=== PATIENT | male | born 1970 | race Two or more races ===

== ENCOUNTER 2020-02-28 13:32 | Emergency (ER) | payer MEDICAID ==
[~2020-02-28] VITALS: Ht 180.3 cm; Wt 86.2 kg
--- NOTE | 2020-02-28 13:48 | NUR ---
came in for RFA multiple lacerations. from bite of a dog. "trying to break two fighting dogs". to ER bed 9, hooked to monitor, change dto hosp gown, warm blanket provided. patient aao X 4. breathing even and unlabored. awaiting md bhakta
--- NOTE | 2020-02-28 13:49 | NUR ---
EXTRA HAND AT BEDSIDE FOR CLEANSING WOUND.
--- NOTE | 2020-02-28 14:29 | NUR ---
ALIVIA DE JESUS: [phone] -
--- NOTE | 2020-02-28 15:15 | NUR ---
Dr Akers at bedside
[2020-02-28] MEDS ORDERED: TDAP [DIPH/PERTUSSIS/TET] 0.5 ML VIAL IM ONE ×2 (15:30→15:51)
[2020-02-28] MEDS ORDERED: ONDANSETRON 4 MG TAB.RAPDIS SL ONE (15:30)
[2020-02-28] MEDS ORDERED: HYDROCODONE/APAP 10/325MG TABLET PO ONE (15:30)
[2020-02-28] MEDS ORDERED: LIDOCAINE 1%-EPI 1:100,000 20 ML VIAL TP ONE (15:30)
[2020-02-28] MEDS ORDERED: AMOX/CLAVULANATE 875 MG TABLET PO ONE (15:30)
[2020-02-28] MEDS ORDERED: HYDROCODONE/APAP 10/325MG TABLET ONE (15:50)
[2020-02-28] MEDS ORDERED: LIDOCAINE 1%-EPI 1:100,000 20 ML VIAL ONE (15:50)
[2020-02-28] MEDS ORDERED: AMOX/CLAVULANATE 875 MG TABLET ONE (15:51)
[2020-02-28] MEDS ORDERED: ONDANSETRON 4 MG TAB.RAPDIS ONE (15:51)
--- NOTE | 2020-02-28 17:01 | NUR ---
EDSON CAMPOS AT BEDSIDE FOR SUTURING
--- NOTE | 2020-02-28 17:26 | NUR ---
Patient discharged to home in stable condition. Written and verbal after care instructions given. Patient verbalizes understanding of instruction. Instructed not to drive. Will be picked up by from waiting room.
[2020-02-28 17:37] VITALS: BP 124/70
== END 2020-02-28 17:38 | disposition home or self-care (01) ==
LOC: ER 13:36
DX: S51.811A Laceration without foreign body of right forearm, initial encounter (principal); S61.511A Laceration without foreign body of right wrist, initial encounter; W54.0XXA Bitten by dog, initial encounter; Y93.89 Activity, other specified; Y92.89 Other specified places as the place of occurrence of the external cause; Y99.8 Other external cause status
CPT/HCPCS: 12004; 73090; 90471; 90715; 99284; A6403; J3490; L3763; Q0162

== ENCOUNTER 2020-03-01 08:03 | Emergency (ER) | payer MEDICAID ==
[~2020-03-01] VITALS: Ht 180.3 cm; Wt 83.9 kg
--- NOTE | 2020-03-01 08:12 | NUR ---
PT came to ER for follow up wound check with multiple laceration on right forearm due to dog bite 2 days ago. noted with swelling on RFA. redness on surrounding area, no purulent discharge. no foul-smelling odor. no c/o pain at this time. awaiting for MD bhakta
[2020-03-01] MEDS ORDERED: LIDOCAINE /MPF 1% VIAL 5 ML VIAL ONE (08:23)
[2020-03-01] MEDS ORDERED: CEFTRIAXONE 1 G VIAL ONE (08:23)
[2020-03-01] MEDS: CEFTRIAXONE 1 G VIAL IM ONE (08:35)
[2020-03-01 08:48] VITALS: BP 123/76
== END 2020-03-01 08:48 | disposition home or self-care (01) ==
LOC: ER 08:06
DX: S51.811D Laceration without foreign body of right forearm, subsequent encounter (principal); L03.113 Cellulitis of right upper limb; W54.0XXD Bitten by dog, subsequent encounter
CPT/HCPCS: 96372; 99283; J0696; J3490

== ENCOUNTER 2020-03-03 07:58 | Emergency (ER) | payer MEDICAID ==
[~2020-03-03] VITALS: Ht 180.3 cm; Wt 85.3 kg
[2020-03-03 08:03] VITALS: BP 123/75
--- NOTE | 2020-03-03 08:10 | NUR ---
SEEN AND EXAMINED BY .
--- NOTE | 2020-03-03 08:17 | NUR ---
WOUND DRESSING AND CLEANING DONE BY MANUAL QA TESTER.
--- NOTE | 2020-03-03 08:21 | NUR ---
Patient discharged to home in stable condition. Written and verbal after care instructions given. Patient verbalizes understanding of instruction.
== END 2020-03-03 08:23 | disposition home or self-care (01) ==
LOC: ER 08:01
DX: S51.811D Laceration without foreign body of right forearm, subsequent encounter (principal); W54.0XXD Bitten by dog, subsequent encounter

== ENCOUNTER 2020-03-09 07:37 | Emergency (ER) | payer MEDICAID ==
[~2020-03-09] VITALS: Ht 180.3 cm; Wt 83.9 kg
[2020-03-09 07:42] VITALS: BP 118/74
--- NOTE | 2020-03-09 08:10 | NUR ---
SUTURE REMOVED BY .
--- NOTE | 2020-03-09 08:22 | NUR ---
Patient discharged to home in stable condition. Written and verbal after care instructions given. Patient verbalizes understanding of instruction.
== END 2020-03-09 08:22 | disposition home or self-care (01) ==
LOC: ER 07:51
DX: S51.811D Laceration without foreign body of right forearm, subsequent encounter (principal); W54.0XXD Bitten by dog, subsequent encounter

== ENCOUNTER 2021-06-23 14:57 | Emergency (ER) | payer BC, MEDICAID ==
[~2021-06-23] VITALS: Ht 180.3 cm; Wt 83.9 kg
--- NOTE | 2021-06-23 15:22 | NUR ---
BIB FAMILY, BLEEDING HEMORRHOIDS/PAIN SINCE 4AM.
--- NOTE | 2021-06-23 15:41 | NUR ---
EDSON CAMPOS AT BEDSIDE FOR EVAL
[2021-06-23] MEDS ORDERED: ONDANSETRON HCL/PF - ER 4 MG/2 ML VIAL IV ONE (16:00)
[2021-06-23] MEDS ORDERED: LIDOCAINE VISCOUS 2% UD 15 ML UDC MM ONE ×2 (16:00→17:00)
[2021-06-23] MEDS ORDERED: MORPHINE SULFATE INJ 10 MG/ML DISP.SYRIN IV ONE (16:00)
[2021-06-23] MEDS ORDERED: MORPHINE SULFATE INJ 4 MG/ML DISP.SYRIN ONE (16:00)
[2021-06-23] MEDS ORDERED: ONDANSETRON HCL/PF 4 MG/2 ML VIAL ONE (16:00)
[2021-06-23] MEDS ORDERED: LIDOCAINE VISCOUS 2% UD 15 ML UDC ONE ×2 (16:00→16:38)
[2021-06-23] MEDS ORDERED: HYDR30CR79 TP (17:13)
[2021-06-23] MEDS ORDERED: LIDO30CR TP (17:13)
[2021-06-23] MEDS ORDERED: DOCU-141 PO (17:13)
[2021-06-23 17:37] VITALS: BP 134/80
--- NOTE | 2021-06-23 17:37 | NUR ---
IV removed. Catheter intact and site benign. Pressure and 4x4 applied to site. No bleeding noted.Patient discharged to home in stable condition. Written and verbal after care instructions given. Patient verbalizes understanding of instruction.
== END 2021-06-23 17:38 | disposition home or self-care (01) ==
LOC: ER 15:00
DX: K64.8 Other hemorrhoids (principal); K62.5 Hemorrhage of anus and rectum; K59.00 Constipation, unspecified; Z79.52 Long term (current) use of systemic steroids; Z79.899 Other long term (current) drug therapy
CPT/HCPCS: 46945; 96374; 96375; 99284; J2270; J2405 ×2

== ENCOUNTER 2023-08-08 15:33 | Emergency (ER) | payer BC ==
[~2023-08-08] VITALS: Ht 180.3 cm; Wt 95.3 kg
[~2023-08-08 15:33] MED LIST: HYDR30CR79 TP; LIDO30CR TP
[2023-08-08] MEDS ORDERED: MORPHINE SULFATE INJ 4 MG/ML DISP.SYRIN ONE (16:33)
[2023-08-08] MEDS: MORPHINE SULFATE INJ 2 MG/ML DISP.SYRIN IV ONE (16:47)
[2023-08-08] MEDS: PROPOFOL 200 MG/20 ML VIAL IV ONE (17:55)
[2023-08-08] MEDS ORDERED: IBUP-1957 PO (19:01)
[2023-08-08 19:23] VITALS: BP 145/99; TEMP 98.2; O2SAT 99
== END 2023-08-08 19:23 | disposition home or self-care (01) ==
LOC: ER 16:11
DX: S43.004A Unspecified dislocation of right shoulder joint, initial encounter (principal); X58.XXXA Exposure to other specified factors, initial encounter; Y93.89 Activity, other specified; Y92.89 Other specified places as the place of occurrence of the external cause; Y99.8 Other external cause status
CPT/HCPCS: 99285; 23650; 96374; 99152; 73030 ×2; J2704; J2270; G0500

== ENCOUNTER 2024-06-18 09:14 | Emergency (ER) | payer BC ==
[~2024-06-18] VITALS: Ht 180.3 cm; Wt 86.2 kg
[~2024-06-18 09:14] MED LIST changes: +IBUP-1957 PO
[2024-06-18] MEDS ORDERED: MORPHINE SULFATE INJ 4 MG/ML DISP.SYRIN ONE (09:55)
[2024-06-18] MEDS ORDERED: ONDANSETRON HCL/PF 4 MG/2 ML VIAL ONE (09:55)
[2024-06-18] MEDS ORDERED: PROPOFOL 20 ML IV ONE (09:55)
[2024-06-18] MEDS ORDERED: FENTANYL PF 100MCG/2ML AMPUL IV ONE (10:00)
[2024-06-18] MEDS: MORPHINE SULFATE INJ 2 MG/ML DISP.SYRIN IV ONE (10:00)
[2024-06-18] MEDS: ONDANSETRON HCL/PF - ER 4 MG/2 ML VIAL IV ONE (10:00)
[2024-06-18] MEDS: PROPOFOL 200 MG/20 ML VIAL IV ONE ×2 (10:05→10:07)
[2024-06-18] MEDS ORDERED: diphenhydrAMINE HCL 50 MG/ML VIAL ONE (10:09)
[2024-06-18] MEDS: diphenhydrAMINE HCL 50 MG/ML VIAL IV ONE (10:20)
[2024-06-18] MEDS ORDERED: IBUP-1490 PO (10:45)
[2024-06-18 11:16] VITALS: BP 135/95; TEMP 98.8; O2SAT 99
== END 2024-06-18 11:20 | disposition home or self-care (01) ==
LOC: ER 09:17
DX: S43.014A Anterior dislocation of right humerus, initial encounter (principal); T78.40XA Allergy, unspecified, initial encounter; Z79.1 Long term (current) use of non-steroidal anti-inflammatories (NSAID); W18.39XA Other fall on same level, initial encounter; Y93.89 Activity, other specified; Y92.39 Other specified sports and athletic area as the place of occurrence of the external cause; Y99.8 Other external cause status
CPT/HCPCS: 99285; 23650; 96374; 96375; 99152; 73030 ×2; J1200; J2704; J2270; J2405 ×2; J7030; G0500

== ENCOUNTER 2024-08-16 17:20 | Emergency (ER) | payer BC ==
[~2024-08-16] VITALS: Ht 180.3 cm; Wt 91.6 kg
[~2024-08-16 17:20] MED LIST changes: +IBUP-1490 PO
[2024-08-16] MEDS ORDERED: KETOROLAC TROMETHAMINE INJ 30 MG/ML VIAL ONE (18:57)
[2024-08-16] MEDS: KETOROLAC TROMETHAMINE INJ 30 MG/ML VIAL IV ONE (18:59)
[2024-08-16] MEDS: KETOROLAC TROMETHAMINE INJ 30 MG/ML VIAL IM ONE (19:01)
[2024-08-16] MEDS ORDERED: AMOX-430 PO (20:10)
[2024-08-16] MEDS ORDERED: ONDANSETRON HCL/PF 4 MG/2 ML VIAL ONE (20:14)
[2024-08-16] MEDS ORDERED: MORPHINE SULFATE INJ 4 MG/ML DISP.SYRIN ONE (20:14)
[2024-08-16] MEDS: ONDANSETRON HCL/PF - ER 4 MG/2 ML VIAL IV ONE (20:16)
[2024-08-16] MEDS: MORPHINE SULFATE INJ 2 MG/ML DISP.SYRIN IV ONE (20:17)
[2024-08-16] MEDS ORDERED: KETAMINE HCL(200MG/20ML) 10 MG/ML VIAL IV ONE (20:30)
[2024-08-16] MEDS ORDERED: LIDOCAINE 1% INJ 50 ML MDV IJ ONE (20:45)
[2024-08-16] MEDS: KETAMINE HCL(200MG/20ML) 10 MG/ML VIAL IV ONE (21:06)
[2024-08-16] MEDS: LIDOCAINE 1% INJ 50 ML MDV IJ ONE (21:13)
[2024-08-16 22:02] VITALS: BP 131/87; TEMP 98.2; O2SAT 95
== END 2024-08-16 22:00 | disposition home or self-care (01) ==
LOC: ER 17:34
DX: S43.014A Anterior dislocation of right humerus, initial encounter (principal); Z79.1 Long term (current) use of non-steroidal anti-inflammatories (NSAID); Z79.899 Other long term (current) drug therapy; X50.0XXA Overexertion from strenuous movement or load, initial encounter; Y93.64 Activity, baseball; Y92.89 Other specified places as the place of occurrence of the external cause; Y99.8 Other external cause status
CPT/HCPCS: 99285; 23650; 96374; 96375; 99152; 73030 ×2; J1885; J3490; J2270; J2405 ×2; A6403; G0500